=== PATIENT | male | born 1965 | race Caucasian/White ===

== ENCOUNTER 2016-12-18 08:01 | Observation (INO) | END 2016-12-19 16:20 | disposition home or self-care (01) | DX: I25.119 Atherosclerotic heart disease of native coronary artery with unspecified angina pectoris (principal); I10 Essential (primary) hypertension; E11.9 Type 2 diabetes mellitus without complications; E78.5 Hyperlipidemia, unspecified; N17.9 Acute kidney failure, unspecified; N18.9 Chronic kidney disease, unspecified | CPT/HCPCS: 71010; 80048; 80053; 80061; 81003; 82550; 82553; 82962; 84484; 85025; 85610; 85730; 90686; 92978; 93005; 93458; C1725; C1887; C9600; C9601; J0153; J1644; J1815; J2250; J3010; J7030; J7040; Q9967; Z7500; Z7610 ==